=== PATIENT | male | born 1995 | race Caucasian/White ===

== ENCOUNTER 2021-08-05 08:51 | Emergency (ER) | payer SELFPAY ==
[~2021-08-05] VITALS: Ht 167.6 cm; Wt 65.0 kg
[2021-08-05 09:06] VITALS: BP 138/95
[2021-08-05] MEDS ORDERED: IBUPROFEN 600MG TABLET PO ONE (09:30)
== END 2021-08-05 10:39 | disposition home or self-care (01) ==
LOC: ER 08:51
DX: M79.641 Pain in right hand (principal); V49.59XA Passenger injured in collision with other motor vehicles in traffic accident, initial encounter; Y93.89 Activity, other specified; Y92.488 Other paved roadways as the place of occurrence of the external cause
CPT/HCPCS: 73130; 99283